=== PATIENT | female | born 1965 | race Caucasian/White ===

== ENCOUNTER 2020-10-13 08:40 | Outpatient (CLI) | payer BC, SELFPAY ==
--- NOTE | 2020-10-13 14:36 | PCRCNOTE ---
PT CAME IN FOR METHACHOLINE CHALLENGE, FLOWS DROPPED 10% ON LEVEL 1 WITH SALINE. TEST STOPPED. GAVE PT ALBUTEROL 2.5mg UPDRAFT X 2 TREATMENTS. UNABLE TO GET PT BACK TO BASELINE. SPOKE WITH DEBBIE ONEILL, PT ALSO SPOKE WITH DEBBIE ONEILL WHO ADVISED PT TO GO TO ER. PT WAS AGREEABLE. PT. STATES SHE WANTED TO GO [place] [employer] IN [place] HER WORKS. ESCORTED PT TO LOBBY TO WAIT FOR HER . PT NOT IN DISTRESS
--- NOTE | 2020-10-24 12:29 | WPDPFTINT ---
PFT Interpretation PFT Interpretation: Methacholine Challenge Test: FEV1 started on 106% and decreased to only 95% and hence did was not a significant decline but unfortunately the doses of Methacholine Challenge are not documented. Impression: Incomplete Methacholine Challenge Test. Recommend repeating test with multiple graduated methacholine doses given and documented per protocol.
== END 2020-10-13 08:41 | disposition home or self-care (01) ==
PROVIDERS: PCP Family Medicine; Visit Provider Nurse Practitioner
DX: J45.909 Unspecified asthma, uncomplicated (principal)
CPT/HCPCS: 94060; 94070; J7674